=== PATIENT | female | born 1980 | race Caucasian/White ===

== ENCOUNTER → 2016-09-22 | Outpatient (CLI) | payer OTHER ==
[~2016-09-22] MED LIST: ASPEC81 PO; LSN25 PO; SIMV10TA2 PO; SYN100 PO; [UNRECOGNIZED DRUG - OTHER]
[2016-09-23 06:53] LABS: ESTIMATED AVERAGE GLUCOSE 177 mg/dl; HA1C FLAG Normal (Normal)
== END | disposition home or self-care (01) ==
LOC: C.LAB 16:26
PROVIDERS: ATTEND Family Medicine
DX: E10.9 Type 1 diabetes mellitus without complications (principal)

== ENCOUNTER → 2017-02-22 | Outpatient (CLI) | payer OTHER ==
[2017-02-22 12:27] LABS: BLOOD UREA NITROGEN 12 mg/dl (7-18); CARBON DIOXIDE 27 mmol/L (21-32); CHLORIDE 102 mmol/L (98-107); GLUCOSE 181 mg/dl (70-99); POTASSIUM 4.1 mmol/L (3.5-5.1); SODIUM 137 mmol/L (136-145)
[2017-02-22 12:35] LABS: CALCIUM 8.6 mg/dl (8.5-10.1)
[2017-02-22 12:54] LABS: ESTIMATED AVERAGE GLUCOSE 186 mg/dl; HA1C FLAG Normal (Normal)
== END | disposition home or self-care (01) ==
LOC: C.LABBFT 08:21
PROVIDERS: ATTEND Family Medicine
DX: E10.9 Type 1 diabetes mellitus without complications (principal); Z86.39 Personal history of other endocrine, nutritional and metabolic disease

== ENCOUNTER → 2017-12-08 | Outpatient (CLI) | payer OTHER ==
[2017-12-08 10:30] LABS: CREATININE RANDOM URINE 91.4 mg/dl
[2017-12-08 10:55] LABS: HEMOGLOBIN A1C 8.4 % (4.5-5.6)
== END | disposition home or self-care (01) ==
LOC: C.LAB 09:00
PROVIDERS: ATTEND Internal Medicine Endocrinology, Diabetes & Metabolism
DX: E03.9 Hypothyroidism, unspecified (principal); E78.5 Hyperlipidemia, unspecified; R80.9 Proteinuria, unspecified; E06.3 Autoimmune thyroiditis; E10.3599 Type 1 diabetes mellitus with proliferative diabetic retinopathy without macular edema, unspecified eye; I10 Essential (primary) hypertension

== ENCOUNTER → 2018-04-19 | Outpatient (CLI) | payer OTHER ==
[2018-04-19 10:51] LABS: ALBUMIN 3.6 gm/dl (3.4-5.0); ALKALINE PHOSPHATASE 51 U/L (45-117); ALT/SGPT 21 U/L (12-78); AST/SGOT 10 U/L (15-37); BLOOD UREA NITROGEN 10 mg/dl (7-18); CALCIUM 8.3 mg/dl (8.5-10.1); CARBON DIOXIDE 24 mmol/L (21-32); CHOLESTEROL 112 mg/dl (0-200); CREATININE 0.69 mg/dl (0.60-1.20); GLUCOSE 174 mg/dl (70-99); LDL CHOLESTEROL CALCULATED 52 mg/dl; POTASSIUM 3.9 mmol/L (3.5-5.1); SODIUM 133 mmol/L (136-145); TOTAL PROTEIN 7.3 gm/dl (6.4-8.2)
[2018-04-19 10:53] LABS: HEMOGLOBIN A1C 7.8 % (4.5-5.6)
== END | disposition home or self-care (01) ==
LOC: C.LAB1850 09:20
PROVIDERS: ATTEND Family Medicine
DX: E10.9 Type 1 diabetes mellitus without complications (principal)

== ENCOUNTER → 2018-04-27 | Outpatient (CLI) | payer OTHER ==
--- NOTE | 2018-04-27 12:54 | EXERCISE STRESS ECHO ---
*NOTICE TO RECEIVING [employer] This information is strictly Confidential and protected under [place] law. [place] law prohibits you from making any further disclosure of this information unless further disclosure is expressly permitted by the written consent of the person to whom it pertains or is authorized by law. A general authorization for the release of medical or other information is not sufficient for this purpose. Hospital accepts no responsibility if the information is made available to any other person, INCLUDING THE PATIENT. Interpretation Summary * Name: MATEO PEARCE Study Date: 04/27/2018 09:19 AM BP: 116/66 mmHg * Patient Location: [facility] HR: 87 * : 1980 (M/d/yyyy) Gender: Female Height: 66 in * Age: 38 yrs Ethnicity: [place] Weight: 200 lb * Ordering Physician: Assigned, No * Referring Physician: Tejal Chopra D.O. * Performed By: Shaylee Yoo RCS * * Reason For Study: ACUTE CHEST PAIN / HINDS WITH PALPITATIONS * BSA: 2.0 m2 * The exercise echocardiographic examination is normal without resting left ventricular wall motion abnormalities or inducible ischemia. * -- Conclusions -- * High workload achieved. * Patient reported chest burning during stage I which did not progress in severity throughout exercise. Noted progressive dyspnea on exertion. No chest heaviness or tightness. All symptoms resolved within 1 minute of recovery. * Ejection Fraction = 60-65%. * There is mild concentric left ventricular hypertrophy. * No significant valvular pathology. Procedure Details * ECHOEX, CPT #61117 * ECHO COLOR FLOW, CPT #12216 * ECHO DOPPLER, CPT #27240 * The study was technically difficult with many images being suboptimal in quality. * A contrast injection of Definity was performed to improve assessment of LV function. * Contrast was injected into an intravenous site in the left arm. * One vial of Definity ultrasound contrast was diluted in normal saline to a total volume of 10 ml. A total of '4' ml of solution was administered during imaging. * Lot # [id number] of Definity utilized for procedure. * Expiration date MAR 07. * The attending nurse who injected the contrast agent was LARA MADRIGAL RN. Left Ventricle * The left ventricle is normal in size. * There is mild concentric left ventricular hypertrophy. * There is normal left ventricular wall thickness. * Ejection Fraction = 60-65%. * Left ventricular systolic function is normal. * Resting wall motion: Normal. Stress wall motion: Appropriate increase in Left ventricular systolic function and decrease in cavity size. No stress induced segmental wall motion abnormalities. Right Ventricle * The right ventricle is normal in size and function. Atria * The left atrial size is normal. * Right atrial size is normal. * No ASD detected; PFO is not assessed. Mitral Valve * The mitral valve is normal. * There is no mitral valve stenosis. * There is trace mitral regurgitation. Tricuspid Valve * The tricuspid valve is normal. * There is no tricuspid stenosis. * There is trace tricuspid regurgitation. Aortic Valve * The aortic valve is trileaflet. * No hemodynamically significant valvular aortic stenosis. * No aortic regurgitation is present. Pulmonic Valve * The pulmonic valve is not well visualized. Great Vessels * The aortic root is normal size. Pericardium * There is no pericardial effusion. Stress Parameters * Normal baseline electrocardiogram. * Stress ECG: No ST changes. No arrhythmias. * Occasional PACs recorded during stress. * Exercise was terminated due to 'fatigue' * High workload achieved. Patient reported chest burning during stage I which did not progress in severity throughout exercise. Noted progressive dyspnea on exertion. No chest heaviness or tightness. All symptoms resolved within 1 minute of recovery. Left Ventricular Diastolic Function * Pulse wave TDI of the anterior and posterior mitral annulas demonstrates normal LV relaxation MMode 2D Measurements and Calculations IVSd 1.3 cm IVSs 1.6 cm LVIDd 3.5 cm LVIDs 2.5 cm LVPWd 1.3 cm LVPWs 1.6 cm IVS/LVPW 1.0 FS 28.3 % EDV(Teich) 51.4 ml ESV(Teich) 22.7 ml EF(Teich) 55.7 % EDV(cubed) 43.4 ml ESV(cubed) 16.0 ml EF(cubed) 63.2 % % IVS thick 26.1 % % LVPW thick 24.3 % LV mass(C)d 151.2 grams LV mass(C)dI 75.6 grams/m\S\2 LV mass(C)s 143.6 grams LV mass(C)sI 71.8 grams/m\S\2 SV(Teich) 28.6 ml SI(Teich) 14.3 ml/m\S\2 SV(cubed) 27.4 ml SI(cubed) 13.7 ml/m\S\2 Ao root diam 2.5 cm Ao root area 5.1 cm\S\2 ACS 2.0 cm LA dimension 2.7 cm LA/Ao 1.1 LVOT diam 1.8 cm LVOT area 2.6 cm\S\2 LVAd ap4 30.0 cm\S\2 LVLd ap4 8.0 cm EDV(MOD-sp4) 91.4 ml EDV(sp4-el) 94.7 ml LVAs ap4 19.1 cm\S\2 LVLs ap4 6.7 cm ESV(MOD-sp4) 44.0 ml ESV(sp4-el) 46.1 ml EF(MOD-sp4) 51.9 % EF(sp4-el) 51.3 % LVAd ap2 24.1 cm\S\2 LVLd ap2 6.9 cm EDV(MOD-sp2) 72.0 ml EDV(sp2-el) 71.6 ml LVAs ap2 16.4 cm\S\2 LVLs ap2 6.7 cm ESV(MOD-sp2) 33.4 ml ESV(sp2-el) 34.2 ml EF(MOD-sp2) 53.6 % EF(sp2-el) 52.3 % LVLd %diff -16.99 % EDV(MOD-bp) 85.9 ml LVLs %diff -0.70 % ESV(MOD-bp) 38.6 ml EF(MOD-bp) 55.0 % SV(MOD-sp4) 47.4 ml SI(MOD-sp4) 23.7 ml/m\S\2 SV(MOD-sp2) 38.6 ml SI(MOD-sp2) 19.3 ml/m\S\2 SV(MOD-bp) 47.3 ml SI(MOD-bp) 23.6 ml/m\S\2 SV(sp4-el) 48.6 ml SI(sp4-el) 24.3 ml/m\S\2 SV(sp2-el) 37.4 ml SI(sp2-el) 18.7 ml/m\S\2 Doppler Measurements and Calculations MV E max sandi 64.7 cm/sec MV A max sandi 55.5 cm/sec MV E/A 1.2 MV P1/2t max sandi 95.8 cm/sec MV P1/2t 73.2 msec MVA(P1/2t) 3.0 cm\S\2 MV dec slope 383.3 cm/sec\S\2 MV dec time 0.32 sec Ao V2 max 138.9 cm/sec Ao max PG 7.7 mmHg Ao max PG (full) 0.95 mmHg FE(V,A) 2.4 cm\S\2 FE(V,D) 2.4 cm\S\2 LV V1 max PG 6.8 mmHg LV V1 max 130.0 cm/sec PA V2 max 88.9 cm/sec PA max PG 3.2 mmHg TR max sandi 219.1 cm/sec
== END | disposition home or self-care (01) ==
LOC: C.CPL 09:21
PROVIDERS: ATTEND Family Medicine
DX: R07.9 Chest pain, unspecified (principal); R00.2 Palpitations; R06.09 Other forms of dyspnea